=== PATIENT | female | born 1975 | race Hispanic/Latino ===

== ENCOUNTER 2017-12-06 20:17 | Emergency (ER) | payer OTHER ==
[2017-12-06 21:33] VITALS: BP 143/79; PULSE 87; RESP 16; TEMP 98; O2SAT 100
--- NOTE | 2017-12-06 21:58 | ED PDOC ---
Upper Extremity Pain/Injury Time Seen by Provider: 12/06/17 21:46 Chief Complaint (Nursing): Upper Extremity Problem/Injury Chief Complaint (Provider): Left Shoulder Pain History Per: Patient History/Exam Limitations: no limitations Onset/Duration Of Symptoms: Days (few months) Current Symptoms Are (Timing): Still Present Additional Complaint(s): Sara is a 42 y/o female presents to ED with ongoing left shoulder pain patient for several months. S has had pain to posterior shoulder that radiates up to her neck and sometimes down her arm. Patient states 2 days ago she lifted heavy tiles into her home and felt exacerbation of pain. She states since then she has noticed tingling and numbness to the left side of her face and the left side of her neck as well as left shoulder. She was seen today at [facility] and MD there advised that she come to ED. Upon arrival patient states that Advil taken earlier did help with the discomfort. She denies any vision changes, headache, chest pain, shortness of breath or dyspnea on exertion. Patient was seen by an orthopedist last week and was told to start course of physical therapy for shoulder. She states orthopedist told her she needed to complete physical therapy course before an MRI of the shoulder could be ordered. Patient has already had x-rays of left shoulder. PMD: Hadley Farr Past Medical History Reviewed: Historical Data, Nursing Documentation, Vital Signs Vital Signs: Last Vital Signs Temp 98.0 F 12/06/17 21:31 Pulse 87 12/06/17 21:31 Resp 16 12/06/17 21:31 BP 143/79 12/06/17 21:31 Pulse Ox 100 12/06/17 21:31 - Medical History PMH: No Chronic Diseases - Surgical History Surgical History: No Surg Hx - Family History Family History: States: No Known Family Hx - Living Arrangements Living Arrangements: With Family - Social History Current smoker - smoking cessation education provided: No Alcohol: None Drugs: Denies - Allergies Allergies/Adverse Reactions: Allergies Allergy/AdvReac Type Severity Reaction Status Date / Time No Known Allergies Allergy Verified 12/06/17 21:41 Review of Systems ROS Statement: Except As Marked, All Systems Reviewed And Found Negative Musculoskeletal: Positive for: Shoulder Pain (left with radiation down left arm and left side of neck and face) Neurological: Positive for: Numbness (left face), Other (tingling left face) Physical Exam - Reviewed Nursing Documentation Reviewed: Yes Vital Signs Reviewed: Yes - Physical Exam Appears: Positive for: Well, Non-toxic, No Acute Distress Head Exam: Positive for: ATRAUMATIC, NORMAL INSPECTION, NORMOCEPHALIC Skin: Positive for: Normal Color, Warm, Dry Eye Exam: Positive for: EOMI, Normal appearance, PERRL ENT: Positive for: Normal ENT Inspection Neck: Positive for: Normal, Painless ROM, Supple, Pain On Movement Of Neck Cardiovascular/Chest: Positive for: Regular Rate, Rhythm. Negative for: Murmur Respiratory: Positive for: Normal Breath Sounds. 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 Negative for: Pedal Edema Neurologic/Psych: Positive for: Alert, soda clerk II-XII (grossly intact), Oriented. Negative for: Motor/Sensory Deficits, Aphasia, Facial Droop - ECG Interpretation Of ECG: Normal sinus rhythm 61 bpm, no acute changes, reviewed by PA and ED attending. O2 Sat by Pulse Oximetry: 100 (RA) Pulse Ox Interpretation: Normal Medical Decision Making Medical Decision Making: Time: 21:55 Initial Impression: 42 y/o female with chronic left shoulder pain Initial Plan: --EKG EKG is normal. No neuro deficits noted on exam. Patient was given referral to orthopedist. She was advised to continue with Advil for pain and to follow-up with the orthopedist as soon as possible. Scribe Attestation: Documented by Rory Plaza, acting as a scribe for Ashlee Stubbs PA-C Provider Scribe Attestation: All medical record entries made by the Scribe were at my direction and personally dictated by me. I have reviewed the chart and agree that the record accurately reflects my personal performance of the history, physical exam, medical decision making, and the department course for this patient. I have also personally directed, reviewed, and agree with the discharge instructions and disposition. Disposition - Clinical Impression Clinical Impression: Shoulder impingement - Patient ED Disposition Is Patient to be Admitted: No Counseled Patient/Family Regarding: Studies Performed, Diagnosis, Need For Followup, Rx Given - Disposition Referrals: Gregory Falcon MD [Staff Provider] - Disposition: Routine/Home Disposition Time: 22:28 Condition: STABLE Additional Instructions: Apply ice to affected area. 3 advil every 6 hrs for pain. Follow up FERNANDO with orthopedist. Instructions: Shoulder Impingement (DC) Forms: Cantimer (Turkish)
--- NOTE | 2017-12-08 18:13 | CARD ---
APPROVED REPORT EKG Measurement Heart [id number] <Conclusion> Normal sinus rhythm Cannot rule out Anterior infarct, age undetermined Abnormal ECG
== END 2017-12-06 23:01 | disposition home or self-care (01) ==
LOC: H.ER 20:17
DX: M75.42 Impingement syndrome of left shoulder (principal); R20.2 Paresthesia of skin; G89.29 Other chronic pain